=== PATIENT | male | born 2000 | race Two or more races ===

== ENCOUNTER 2024-12-23 13:09 | Emergency (ER) | payer MEDICAID, OTHER ==
[~2024-12-23] VITALS: Ht 154.9 cm; Wt 61.0 kg
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
--- NOTE | 2024-12-23 14:33 | DVH ---
XY R WRIST 2 VIEW XRAY, INDICATION: trauma TECHNICAL DATA: Frontal , and lateral views were obtained of the right wrist. COMPARISON: None FINDINGS: Comminuted, displaced distal radius fracture. Joint spaces are maintained. Alignment is anatomic. Uln ar variance is neutra.. Soft tissues are within normal limits. IMPRESSION: Comminuted, displaced distal radius fracture. Ulna styloid fracture.
[2024-12-23] MEDS: HYDROcodone-ACET 10/325MG TAB PO ONE (15:51)
[2024-12-23 15:56] VITALS: BP 140/85; PULSE 75; RESP 16; TEMP 97.2; O2SAT 98
[2024-12-23] MEDS ORDERED: HYDR-4902 PO (16:50)
== END 2024-12-23 17:07 | disposition home or self-care (01) ==
LOC: ER 13:09
DX: S52.511A Displaced fracture of right radial styloid process, initial encounter for closed fracture (principal); S52.611A Displaced fracture of right ulna styloid process, initial encounter for closed fracture; F17.210 Nicotine dependence, cigarettes, uncomplicated; V89.2XXA Person injured in unspecified motor-vehicle accident, traffic, initial encounter; Y93.89 Activity, other specified; Y92.89 Other specified places as the place of occurrence of the external cause; Y99.8 Other external cause status
CPT/HCPCS: 29125; 73100